=== PATIENT | male | born 2000 | race African-American/Black ===

== ENCOUNTER 2022-06-25 10:07 | Emergency (ER) | payer SELFPAY ==
[~2022-06-25] VITALS: Ht 177.8 cm; Wt 62.0 kg
[~2022-06-25 10:07] MED LIST: ALBUTEROL; Q-VAR
[2022-06-25] MEDS ORDERED: ONDANSETRON HCL 4MG/2ML INJ IV ONE (10:30)
[2022-06-25] MEDS ORDERED: KETOROLAC 15MG/ML VIAL IV ONE (10:30)
[2022-06-25] MEDS ORDERED: SODIUM CHLORIDE 0.9% 1,000 ML IV ONE (10:30)
[2022-06-25 10:36] LABS: HEMATOCRIT. 47.5 % (42.0-52.0); HEMOGLOBIN. 16.2 g/dL (14.0-18.0); MEAN CORPUSCULAR HEMOGLOBIN 28.8 pg (28.0-32.0); MEAN CORPUSCULAR VOLUME 84.3 fL (80.0-94.0); MEAN PLATELET VOLUME 6.6 fl (7.4-10.4); PLATELET 286 x1000/uL (130-400); RED BLOOD CELL COUNT 5.64 mill/uL (4.7-6.1); RED CELL DISTRIBUTION WIDTH 14.1 % (11.6-14.6)
[2022-06-25 10:46] LABS: CHLORIDE 105 mEq/L (98-107)
[2022-06-25 11:08] LABS: ATYPICAL LYMPHOCYTES 1
[2022-06-25 11:09] LABS: PLATELET ESTIMATE NORMAL
[2022-06-25 11:48] LABS: CLARITY URINE CLEAR (CLEAR); COLOR URINE DARK YELLOW (YELLOW); KETONES URINE TRACE (NEGATIVE); LEUKOCYTE ESTERASE URINE NEGATIVE (NEGATIVE); NITRITE URINE NEGATIVE (NEGATIVE); OCCULT BLOOD URINE 2+ (NEGATIVE); PH URINE 5.5 (4.5-8.0); PROTEIN URINE 2+ (NEGATIVE); SPECIFIC GRAVITY URINE 1.037 (1.005-1.030)
[2022-06-25] MEDS ORDERED: MAGNESIUM/ALUMINUM HYDROXIDE/SIMETHICONE 30ML UDC PO STA (12:24)
[2022-06-25] MEDS ORDERED: VISCOUS LIDOCAINE 2% 15 ML UDC PO STA (12:24)
[2022-06-25] MEDS ORDERED: FAMOTIDINE 20MG/2ML VIAL IV ONE (12:30)
[2022-06-25] MEDS ORDERED: ACETAMINOPHEN 325MG TABLET PO ONE (12:30)
[2022-06-25] MEDS ORDERED: MAG-55 MT (12:37)
[2022-06-25] MEDS ORDERED: FAMO-135 MT (12:37)
[2022-06-25 13:55] VITALS: BP 108/68
== END 2022-06-25 13:56 | disposition home or self-care (01) ==
LOC: ER 10:52
DX: R10.33 Periumbilical pain (principal); J45.909 Unspecified asthma, uncomplicated
CPT/HCPCS: 36415; 74176; 80053; 81003; 83690; 85025; 93005; 96374; 96375; 99285; J1885; J2405; J3490; J7030; Z7610; 96361